=== PATIENT | male | born 1955 | race Caucasian/White ===

== ENCOUNTER 2019-09-10 13:55 | Outpatient (CLI) | payer MEDICAID, SELFPAY ==
--- NOTE | 2019-09-10 14:04 | XR_ITS ---
WS: [id number] CHEST 2 VIEWS HISTORY: CHRONIC OBSTRUCTIVE PULMONARY DISEASE COMPARISON: 12/19/2018 Lungs: Severe pulmonary hyperinflation. Severe chronic changes of chronic emphysema. New and increasi ng areas of consolidation at the lung bases, RIGHT greater than LEFT. Bilateral upper lobe pleural th ickening and scarring. Cardiac size: Normal. Mediastinum/Aorta: Mild atherosclerosis aorta. Bones: Normal. XR/XR chest 2V* [id number] IMPRESSION: 1. Bilateral lower lobe opacifications, likely pneumonia. Recommend follow-up to resolution. 2. Severe emphysema.
== END 2019-09-10 13:56 | disposition home or self-care (01) ==
LOC: WPI 14:00
PROVIDERS: Family Provider Nurse Practitioner Family; PCP Family Medicine; Referring Provider Family Medicine; Visit Provider Nurse Practitioner Family
DX: J43.9 Emphysema, unspecified (principal)
CPT/HCPCS: 71046